=== PATIENT | male | born 2005 | race Caucasian/White ===

== ENCOUNTER 2023-12-07 13:26 | Emergency (ER) | payer BC, SELFPAY ==
[2023-12-07 13:36] VITALS: BP 140/80; PULSE 83; RESP 16; TEMP 36.8; O2SAT 100
--- NOTE | 2023-12-07 14:14 | ED.WOUNDLAC ---
HPI - Wound/Laceration General Chief Complaint: Wound/Laceration Stated Complaint: laceration left thumb Time Seen by Provider: 12/07/23 14:10 Source: patient Mode of arrival: ambulatory Limitations: no limitations History of Present Illness HPI narrative: Lm is a 18-year-old male patient presenting to the ER today for a laceration to the left distal thumb. He reports he was trying to open up a package and a kick boxer slipped and he cut himself. Tetanus shot is up-to-date. Related Data Allergies Allergy/AdvReac Type Severity Reaction Status Date / Time No Known Allergies Allergy Verified 12/07/23 14:24 Review of Systems Review of Systems: Pertinent positives per HPI. Patient denies any fever, chills, rash, headache, visual changes, dizziness, cough, shortness of breath, chest pain, palpitations, nausea, vomiting, diarrhea, constipation, abdominal pain, or any urinary issues. PMFSH Comments At the time of my signature, I reviewed and agree with the nursing past medical, surgical, social, and family history. There is no relevant family history pertinent to the patient complaint. Exam Narrative: General: Well-developed, well nourished, in no apparent distress Head: Normocephalic, atraumatic. Cardio: Regular rate and rhythm, s1 and s2 normal, no murmur appreciated. Resp: Clear to auscultation bilaterally, no rhonchi, rales, wheezing or rubs. Integumentary: [place], warm, and dry, intact without lesion, 1.5 cm laceration to the distal tip of the left thumb Course Course Emergency Course: Portions of this record may have been created with voice recognition software. Vital Signs Vital signs: Vital Signs Temperature 36.8 C 12/07/23 13:36 Pulse Rate 83 12/07/23 13:36 Respiratory Rate 16 12/07/23 13:36 Blood Pressure 140/80 12/07/23 13:36 Pulse Oximetry 100 12/07/23 13:36 Temperature 36.8 C 12/07/23 13:36 Pulse Rate 83 12/07/23 13:36 Respiratory Rate 16 12/07/23 13:36 Blood Pressure 140/80 12/07/23 13:36 Pulse Oximetry 100 12/07/23 13:36 Vital signs reviewed Procedures Laceration Laceration 1: Date: 12/07/23 Site: hand (Left thumb) Side (If applicable): left Size (cm): 1.5 Description: linear Depth: simple, single layer Local Anesthetic: lidocaine 1% Amount of anesthesia used (mL): 1 Pre-repair: wound explored and irrigated ====== Skin Level ====== ====== Subcutaneous Layer ====== ====== Muscle Layer ====== ====== Tendon Layer ====== Dressing: Verbal consent obtained for laceration repair. Risk and benefits explained and patient voiced understanding. Area was cleansed with sterile normal saline and a 25 gauge needle was then used to instill (1) ml of 1% lidocaine without epi into the wound edges. Area was prepped and draped using sterile technique. A 4-0 suture on a p needle was used to place (4) interrupted sutures bringing the wound edges together- well approximated. Patient tolerated procedure well. Sterile dressing applied. MDM - Wound/Laceration MDM Narrative Medical decision making narrative: At the time of visit patient is resting comfortably on the exam table. Patient appears to be nontoxic. Procedure: Laceration repair procedure was performed. Lidocaine 1%-1 mL instilled into wound edges. Four interrupted sutures were placed into the wound edges bringing the edges well approximate. Plan: Laceration repair performed. Supportive measures were discussed with the patient and they voiced understanding discharge instructions and agrees to treatment plan. Return precautions reviewed Differential Diagnosis Differential diagnosis: Likely laceration, abscess, abrasion and avulsion of skin Discharge Plan Discharge Clinical Impression: Laceration of thumb without complication Qualifiers: Encounter type: initial encounter Laterality: left Qualified Code(s
--- NOTE | 2023-12-07 14:53 | PC.NURSE ---
RN assisted with laceration repair. Pt receivedx4 sutures to right thumb. Pt tolerated well. Gauze & coban dressing applied
[2023-12-07 14:55] VITALS: BP 120/87; PULSE 88; RESP 16; TEMP 36.8; O2SAT 99
== END 2023-12-07 14:57 | disposition home or self-care (01) ==
PROVIDERS: Emergency Provider Nurse Practitioner Family
DX: S61.012A Laceration without foreign body of left thumb without damage to nail, initial encounter (principal); W27.8XXA Contact with other nonpowered hand tool, initial encounter
CPT/HCPCS: 12001; 99282